=== PATIENT | female | born 1975 | race Caucasian/White ===

== ENCOUNTER 2018-03-04 16:52 | Outpatient (CLI) | payer OTHER ==
--- NOTE | 2018-03-04 18:28 | Diagnostic Imaging Report ---
PAULA BAGLEY (ROBERT) - OP [facility] [address] [address] Report Submission Date: Mar 04, 2018 5:59:08 PM CDT Patient Study Name: JEFF MAXWELL Date: Mar 04, 2018 5:22:47 PM CDT Modality Type: DX Gender: F Description: SHOULDER : 71 Institution: [facility] Physician: PAULA BAGLEY (ROBERT) - OP Examination: Plain film right clavicle. History: RT CLAVICLE, CYST, PT NOTICED A BUMP IN THE AREA OF HER CLAVICLE ABOUT A WEEK AGO (Hx) Comparison exams: None available. Findings: 2 views of the right clavicle demonstrates normal cortical margins. No cortical irregularity. No evidence for fracture line. No soft tissue abnormality. Impression: No clavicular abnormality. Electronically signed on Mar 04, 2018 5:59:08 PM CDT by: Miller WALLACE
--- NOTE | 2018-03-04 18:28 | Diagnostic Imaging Report ---
PAULA BAGLEY (ROBERT) - OP [facility] [address] [facility].[address] [id number] Report Submission Date: Mar 04, 2018 5:57:44 PM CDT Patient Study Name: JEFF MAXWELL Date: Mar 04, 2018 5:17:49 PM CDT Modality Type: DX Gender: F Description: SHOULDER : 71 Institution: [facility] Physician: PAULA BAGLEY) - OP Examination: Plain film right shoulder History: RT SHOULDER, PAIN IN RT SHOULDER FOR ABOUT 2 WEEKS, NO KNOWN INJURY BUT PT STATES SHE CARRIES A HEAVY BAG TO WORK EVERYDAY (Hx) Comparison exams: None provided Findings: 3 views of the right shoulder demonstrate normal cortical margins. No evidence for fracture or dislocation. No soft tissue abnormality Impression: No acute osseous process. Electronically signed on Mar 04, 2018 5:57:44 PM CDT by: Miller WALLACE
== END 2018-03-04 16:53 ==
LOC: RAD 16:52
PROVIDERS: ATTEND Nurse Practitioner Family
DX: M25.511 Pain in right shoulder (principal); M85.40 Solitary bone cyst, unspecified site
CPT/HCPCS: 73000; 73030